=== PATIENT | male | born 1965 | race Asian ===

== ENCOUNTER 2018-06-14 22:41 | Emergency (ER) | payer OTHER ==
[~2018-06-14] VITALS: Ht 170.2 cm; Wt 81.6 kg
[~2018-06-14 22:41] MED LIST: LEVO750T2 PO; LOSA50TA66 PO; ORE25 PO; PARO30TA PO; POTA10TE30 PO
--- NOTE | 2018-06-14 22:43 | NUR ---
BIBA TO ER BED 7
--- NOTE | 2018-06-14 22:45 | NUR ---
PT BIBA FOR ANXIETY, GENERALIZED WEAKNESS, AND NAUSEA FOR THE PAST 2-3 HOURS. PT STATES HE HAS BEEN STRESSED TODAY AND HIS RX MEDS ARE NOT GIVING HIM RELEIF. PT IS CALM ON ARRIVAL AND STATES HE "FEELS BETTER". NO NAUSEA ON ARRIVAL. PMH ANXIETY, HTN
--- NOTE | 2018-06-14 22:46 | NUR ---
ER AT BEDSIDE
[2018-06-14 22:47] VITALS: BP 152/96
[2018-06-14] MEDS ORDERED: LORazepam 1 MG TAB PO ONE (23:00)
--- NOTE | 2018-06-14 23:10 | NUR ---
LAB AT BEDSIDE.
[2018-06-14 23:48] LABS: CARBON DIOXIDE 31.2 mmol/L (21-32); CREATININE 1.1 mg/dL (0.7-1.3); POTASSIUM 3.2 mmol/L (3.5-5.1)
[2018-06-15] MEDS ORDERED: POTASSIUM CHLORIDE 10 MEQ TABER PO ONE (00:15)
--- NOTE | 2018-06-15 00:38 | NUR ---
Patient discharged with v/s stable. Written and verbal after care instructions given and explained. Patient verbalized understanding. Ambulatory with steady gait. All questions addressed prior to discharge. Advised to follow up with PMD.
[2018-06-15 00:46] VITALS: BP 135/91
== END 2018-06-15 00:38 | disposition home or self-care (01) ==
LOC: MED 22:41
DX: E87.6 Hypokalemia (principal); F41.9 Anxiety disorder, unspecified; Z79.2 Long term (current) use of antibiotics; Z79.899 Other long term (current) drug therapy
CPT/HCPCS: 36415; 80048; 99283